=== PATIENT | male | born 1970 | race African-American/Black ===

== ENCOUNTER 2016-10-16 19:01 | Emergency (ER) | payer OTHER ==
[~2016-10-16] VITALS: Ht 175.3 cm; Wt 84.1 kg
[2016-10-16] MEDS ORDERED: NS 500 ML IV ONE (19:30)
[2016-10-16 19:43] LABS: BASO % 0.2 % (0.0-1.0); EOS # 0.2 K/mm3 (0.0-0.50); EOS % 1.6 % (0.0-3.0); LARGE UNSTAINED CELL # 0.1 K/mm3 (0.0-0.4); LARGE UNSTAINED CELL % 0.7 % (0.0-4.0); LYMPH % 6.2 % (24.0-44.0); MEAN CORPUSCULAR HEMOGLOBIN 30.6 pg (27.0-33.0); MEAN CORPUSCULAR VOLUME 90.2 fl (80.0-96.0); MONO # 0.5 K/mm3 (0.0-0.8); MONO % 3.5 % (0.0-5.0); NEUTROPHILS # 12.7 K/mm3 (1.8-7.7); NEUTROPHILS % 87.8 % (36.0-66.0); PLATELET COUNT, AUTOMATED 199 k/mm3 (150-450); RED CELL DISTRIBUTION WIDTH 13.5 % (11.5-14.5); WHITE BLOOD COUNT 14.5 K/mm3 (4.0-10.0)
[2016-10-16] MEDS ORDERED: MORPHINE 2 MG/ML 1ML SYRINGE IV ONE (19:45)
[2016-10-16 19:49] LABS: INR 1.02
[2016-10-16 20:06] LABS: ALBUMIN 4.5 GM/DL (3.2-5.2); ALBUMIN/GLOBULIN RATIO 1.22 (1.00-1.93); ALKALINE PHOSPHATASE 60 U/L (45-117); ALT/SGPT 38 U/L (12-78); ANION GAP 11 MEQ/L (8-16); AST/SGOT 25 U/L (15-37); BILIRUBIN,DIRECT 0.4 MG/DL (0.0-0.2); BILIRUBIN,TOTAL 1.5 MG/DL (0.2-1.0); BLOOD UREA NITROGEN 5 MG/DL (7-18); CARBON DIOXIDE LEVEL 25 MEQ/L (21-32); CHLORIDE LEVEL 100 MEQ/L (98-107); CREATININE FOR GFR 0.93 MG/DL (0.70-1.30); GLOMERULAR FILTRATION RATE > 60.0 (>60); GLUCOSE, FASTING 112 MG/DL (70-105); POTASSIUM SERUM 3.6 MEQ/L (3.5-5.1); SODIUM LEVEL 136 MEQ/L (136-145); TOTAL PROTEIN 8.2 GM/DL (6.4-8.2)
[2016-10-16 20:12] LABS: FREE T4 0.97 NG/DL (0.76-1.46)
[2016-10-16] MEDS: NS 1,000 ML IV SCH ×2 (20:15→21:29)
[2016-10-16] MEDS ORDERED: ISOVUE-370 76% 100ML VIAL (Q9967) As Ordered ONE (20:37)
[2016-10-16 20:41] VITALS: BP 141/88
--- NOTE | 2016-10-16 20:50 | REPUSA ---
Clinical history: left flank pain. Findings: The urinary bladder appears unremarkable, measuring 11.0 x 7.3 x 6.2 cm. No urinary bladder masses are seen. The right kidney measures 13.5 x 5.6 x 4.9 cm. The left kidney measures 11.3 x 6.1 x 5.7 cm. The kidneys demonstrate normal echotexture and echogenicity. There is no evidence of hydron ephrosis or nephrolithiasis. No renal masses are seen. No free fluid is appreciated. Impression: Unremarkable ultrasound examination of the kidneys.
--- NOTE | 2016-10-16 21:10 | REPUSA ---
CT of the abdomen and pelvis with and without contrast Clinical statement: Pain, left flank. Technique: Multiple axial CT images were obtained from the base of the lungs through the floor of the pelvis utilizing 5 mm axial slices before and after administration of nonionic intravenous contrast. 3D, coronal and sagittal reconstructions were also obtained. No comparison is available. Findings: Chest: The visualized lung bases are clear. Abdomen: The liver, spleen, pancreas, kidneys, gallbladder, and adrenal glands are unremarkable. Ther e is a left perinephric inflammation and edema noted. There is no evidence of hydronephrosis or nephr olithiasis. The aorta is within normal limits. There is no evidence of abdominal lymphadenopathy. Pelvis: The bowel is unremarkable, with no obstructive or inflammatory changes. The appendix is rahat l. The urinary bladder is within normal limits. The other pelvic structures appear grossly intact. Th ere is no evidence of pelvic lymphadenopathy or ascites. Bones: There are no suspicious osseous abnormalities seen. There is moderate degenerative disc diseas e at L5/S1. Impression: 1. Left perinephric inflammation and edema appreciated, with small amount of fluid noted. There is no evidence of hydronephrosis or nephrolithiasis. The kidneys enhance symmetrically and appropriately. The findings are nonspecific, but an acute infectious/inflammatory process such as left-sided pyelone phritis cannot completely be excluded. Follow-up is recommended as clinically indicated. 2. No obstructive or inflammatory bowel changes. 3. Moderate degenerative disc disease at L5/S1.
[2016-10-16] MEDS ORDERED: KEFL500C17 PO (21:27)
[2016-10-16] MEDS ORDERED: cefTRIAXone SOD 2 GM in D5W MINI-BAG PLUS 50 ML IV ONE (21:30)
[2016-10-16] MEDS ORDERED: KETOROLAC 30 MG/ML VIAL (J1885) IV ONE (21:45)
[2016-10-16] MEDS ORDERED: KETO10TAB PO (22:21)
--- NOTE | 2016-10-17 08:40 | ECGEPIP ---
Stationary ECG Study [facility] - ED Test Date: 2016-10-16 Pat Name: RITESH ZAVALETA Department: Room: - Gender: M [employer] Eval[employer]: socorro : 1970 Requested By: Roby Guajardo PA-C Order Number: [id number] Reading MD: Amelia Vazquez Measurements Intervals [place] Rate: 78 P: 28 LA: 178 QRS: -1 QRSD: 82 T: 29 QT: 368 QTc: 422 Interpretive Statements SINUS RHYTHM NO PRIOR FOR COMPARISON Electronically Signed On 10-17-2016 8:39:57 EDT by Amelia Vazquez
--- NOTE | 2016-10-17 08:54 | REP ---
CHEST, TWO VIEWS: HISTORY: Chest pain. The lungs are clear. The heart is normal in size. The pulmonary vasculature is normal in appearance. The bony structure is intact. IMPRESSION: No acute disease. Signed by Angel Hebert MD 10/17/2016 09:00 A
== END 2016-10-16 22:33 | disposition home or self-care (01) ==
LOC: M ED 19:01
DX: R07.9 Chest pain, unspecified (principal); R10.9 Unspecified abdominal pain
CPT/HCPCS: 71020; 74178; 76775; 80048; 80076; 81001; 82550; 82553; 83690; 83880; 84439; 84443; 85025; 85379; 85610; 85730; 86140; 87040; 87086; 93005; 93041; 94760; 96361; 96374; 96375; 99284; J0696; J1885; Q9967

== ENCOUNTER 2017-07-20 20:08 | Emergency (ER) | payer OTHER | END 2017-07-21 00:10 | disposition home or self-care (01) | LOC: M ED 20:08 | DX: R07.89 Other chest pain (principal); I10 Essential (primary) hypertension; E78.5 Hyperlipidemia, unspecified; Z79.1 Long term (current) use of non-steroidal anti-inflammatories (NSAID); Z79.2 Long term (current) use of antibiotics | CPT/HCPCS: 93005 ==

== ENCOUNTER → 2017-07-20 | Outpatient (REF) | payer OTHER ==
[2017-07-21 14:14] LABS: ANION GAP 7 MEQ/L (8-16); BLOOD UREA NITROGEN 11 MG/DL (7-18); CALCIUM LEVEL 9.1 MG/DL (8.5-10.1); CARBON DIOXIDE LEVEL 27 MEQ/L (21-32); CHLORIDE LEVEL 102 MEQ/L (98-107); CK-MB VALUE MASS < 1.0 NG/ML (<3.6); CPK CREATINE PHOSPHOKINASE 139 U/L (39-308); CREATININE FOR GFR 0.87 MG/DL (0.70-1.30); GLOMERULAR FILTRATION RATE > 60.0 (>60); GLUCOSE, FASTING 101 MG/DL (70-100); MB/CK RELATIVE INDEX 0.71 (< OR =4); POTASSIUM SERUM 4.3 MEQ/L (3.5-5.1); SODIUM LEVEL 136 MEQ/L (136-145)
[2017-07-21 14:15] LABS: INR 0.98; PROTHROMBIN TIME 13.1 SECONDS (12.4-14.5)
[2017-07-21 14:16] LABS: HEMOGLOBIN 14.7 g/dl (13.5-17.5); MEAN CORPUSCULAR HEMOGLOBIN 30.1 pg (27.0-33.0); MEAN CORPUSCULAR HGB CONC 33.4 g/dl (32.0-36.5); PLATELET COUNT, AUTOMATED 242 10^3/uL (150-450); RED BLOOD COUNT 4.89 10^6/uL (4.30-6.10); RED CELL DISTRIBUTION WIDTH 13.5 % (11.5-14.5); WHITE BLOOD COUNT 7.7 10^3/uL (4.0-10.0)
== END ==
LOC: M ED 13:44
DX: Z00.00 Encounter for general adult medical examination without abnormal findings (principal); Z79.01 Long term (current) use of anticoagulants
CPT/HCPCS: 82550